=== PATIENT | female | born 1950 | race Caucasian/White ===

== ENCOUNTER 2017-05-08 14:51 | Inpatient (IN) | payer MEDICARE, BC ==
[2017-05-08] MEDS ORDERED: Ondansetron 4 MG/2 ML SDV IV PRN (16:25)
[2017-05-08] MEDS ORDERED: Sodium Chloride 0.9% 10 ML Syringe FLUSH PRN (16:25)
[2017-05-08] MEDS ORDERED: cefTRIAXone 1 GM Vial ONE (16:59)
[2017-05-08] MEDS: cefTRIAXone 1 GM in Sodium Chloride 0.9% 50 ML IV SCH (17:00)
--- NOTE | 2017-05-08 17:04 | PCM.HP ---
H&P History of Present Illness - General Date of Service: 05/08/17 Admit Problem/Dx: Admission Diagnosis/Problem Admission Diagnosis/Problem Pneumonia Source of Information: Patient History Limitations: Reports: No Limitations - History of Present Illness Initial Comments - Free Text/Narative: This is a 66yo F here for concerns of dizziness and chills. Patient states she was sick last week with diarrhea, vomiting and fever and felt improved the past few days and then her symptoms of chills returned with dizziness and loss of appetite. Her was sick last week as well but is well today. She states she just doesn't feel good. She has had a productive cough for the last couple days and chills. Onset of Symptoms: Reports: Sudden Duration of Symptoms: Reports: Day(s):, Getting Worse Location: Reports: Chest Severity: Moderate Improves with: Reports: None Worsens with: Reports: None Associated Symptoms: Reports: Cough, Fever/Chills, Loss of Appetite, Nausea/ Vomiting - Related Data Allergies/Adverse Reactions: Allergies Allergy/AdvReac Type Severity Reaction Status Date / Time sertraline HCl [From Zoloft] Allergy Diarrhea Verified 07/23/15 06:01 Home Medications: Home Meds FLUoxetine [PROzac] 40 mg PO DAILY 07/23/15 [History] Flecainide Acetate 50 mg PO BID 07/23/15 [History] Metoprolol Succinate [Toprol XL] 75 g PO DAILY 07/23/15 [History] Warfarin [Coumadin] 5 mg PO DAILY 07/23/15 [History] H&P Review of Systems - Review of Systems: Review Of Systems: ROS reveals no pertinent complaints other than HPI. Exam - Exam Exam: See Below - Vital Signs Vital Signs: Last Vital Signs Temp 36.1 C 05/08/17 16:57 Pulse 125 H 05/08/17 16:57 Resp 20 05/08/17 16:57 BP 112/81 05/08/17 16:57 Pulse Ox 97 05/08/17 16:57 - Exam General: Alert, Oriented, Cooperative HEENT: PERRLA, Conjunctiva Clear, EACs Clear, EOMI Neck: Supple, Trachea Midline Lungs: Normal Respiratory Effort, Rhonchi Cardiovascular: Irregular Rhythm, Tachycardia GI/Abdominal Exam: Abnormal Bowel Sounds (decreased bowel sounds) Back Exam: Normal Inspection Extremities: Normal Inspection Peripheral Pulses: 2+: Dorsalis Pedis (L), Dorsalis Pedis (R) Skin: Warm, Dry, Intact Neurological: Cranial Nerves Intact, Reflexes Equal Bilateral Neuro Extensive - Mental Status: Alert, Oriented x3, Normal Mood/Affect, Normal Cognition, Memory Intact Psychiatric: Alert, Normal Affect, Normal Mood - Patient Data Lab Results Last 24 hrs: Laboratory Results - last 24 hr 05/08/17 05/08/17 05/08/17 Range/Units 15:06 15:06 15:31 WBC 23.6 H* D (4.0-11.0) K/uL RBC 4.76 (3.80-5.80) M/uL Hgb 15.1 (11.5-16.5) g/dL Hct 44.4 (37.0-47.0) % MCV 93 (76-96) fL MCH 31.7 (27.0-32.0) pg MCHC 34.0 (31.0-35.0) g/dL RDW 12.1 (11.0-16.0) % Plt Count 274 (150-500) K/uL MPV 10.6 H (6.0-10.0) fL Neut % (Auto) 84.5 H (45.0-70.0) % Lymph % (Auto) 8.3 L (20.0-40.0) % [place] % (Auto) 7.1 (3.0-10.0) % Eos % (Auto) 0.0 L (1.0-5.0) % Baso % (Auto) 0.1 (0.0-0.5) % Neut # (Auto) 19.94 H (2.00-7.50) K/uL Lymph # (Auto) 1.96 (1.50-4.00) K/uL [place] # (Auto) 1.68 H (0.20-0.80) K/uL Eos # (Auto) 0.01 L (0.04-0.40) K/uL Baso # (Auto) 0.02 (0.02-0.10) K/uL PT 30.3 H D (9.0-11.5) sec INR 3.2 D (1.0-3.5) Sodium 138 (136-145) mmol/L Potassium 4.1 (3.5-5.1) mmol/L Chloride 103 (98-107) mmol/L Carbon Dioxide 23.3 (21.0-32.0) mmol/L Anion Gap 15.8 H (5.0-15.0) mmol/L BUN 15 D (8-26) mg/dL Creatinine 0.96 (0.55-1.02) mg/dL Est Cr Clr Drug Dosing TNP Estimated GFR (MDRD) 58 L (>60) MLS/MIN BUN/Creatinine Ratio 15.6 (6-25) Glucose 129 H (74-100) mg/dL Calcium 8.9 (8.5-10.1) mg/dL Total Bilirubin 0.9 D (0.0-1.0) mg/dL AST 26 (15-37) U/L ALT 39 (12-78) U/L Alkaline Phosphatase 89 (46-116) U/L Troponin I < 0.017 (0.000-0.060) ng/mL Total Protein 7.7 (6.4-8.2) g/dL Albumin 3.4 (3.4-5.0) g/dL Globulin 4.3 H (2.2-4.2) g/dL Albumin/Globulin Ratio 0.8 (0.8-2.0) TSH, Ultra Sensitive 2.376 (0.358-3.740) uIU/mL Result Diagrams: 05/08/17 15:06 05/08/17 15:06 Farhad Results Last 24 hrs: Microbiology 05/08/17 15:06 Influenza Type A Antigen Screen - Final Nasal, Unspecified NEGATIVE INFLUENZA A VIRUS AG Influenza Type B Antigen Screen - Final NEGATIVE INFLUENZA B VIRUS AG EKG INTERPRETATION EKG Date: 05/08/17 Rhythm: A-Flutter Rate (Beats/Min): 119 Comparison: NA - No Prior EKG *Q Meaningful Use (ADM) - VTE *Q VTE Criteria *Q: - Stroke *Q Stroke Criteria *Q: - AMI *Q AMI Criteria *Q: - Problem List (1) Pneumonia SNOMED Code(s): 458905259 ICD Code: J18.9 - PNEUMONIA, UNSPECIFIED ORGANISM Status: Acute Priority : High Current Visit: Yes Qualifiers: Pneumonia type: due to unspecified organism Laterality: left Lung location: lower lobe of lung Qualified Code(s): J18.1 - Lobar pneumonia, unspecified organism (2) Atrial flutter with rapid ventricular response SNOMED Code(s): 8092345 ICD Code: I48.92 - UNSPECIFIED ATRIAL FLUTTER Status: Acute Priority: High Current Visit: Yes (3) Supratherapeutic INR SNOMED Code(s): 809314659 ICD Code: R79.1 - ABNORMAL COAGULATION PROFILE Status: Acute Priority: Medium Current Visit: Yes (4) Depression SNOMED Code(s): 28043109 ICD Code: F32.9 - MAJOR DEPRESSIVE DISORDER, SINGLE EPISODE, UNSPECIFIED Status: Acute Priority: Medium Current Visit: Yes Qualifiers: Depression Type: major depressive disorder Major depression recurrence: recurrent Active/Remission status: in remission of unspecified degree Qualified Code(s): F33.40 - Major depressive disorder, recurrent, in remission, unspecified (5) Chills (without fever) SNOMED Code(s): 63785761 ICD Code: R68.83 - CHILLS (WITHOUT FEVER) Status: Acute Priority: High Current Visit: Yes (6) Dizziness SNOMED Code(s): 276255987 ICD Code: R42 - DIZZINESS AND GIDDINESS Status: Acute Priority: High Current Visit: Yes (7) COPD (chronic obstructive pulmonary disease) SNOMED Code(s): 09537195 ICD Code: J44.9 - CHRONIC OBSTRUCTIVE PULMONARY DISEASE, UNSPECIFIED Status : Acute Current Visit: Yes Problem List Initiated/Reviewed/Updated: Yes Orders Last 24hrs: Active Orders 24 hr Category Date Time Status Patient Status [ADT] Routine ADT 05/08/17 16:25 Active Cardiac Monitoring [RC] CONTINUOUS Care 05/08/17 16:26 Active Oxygen Therapy [RC] PRN Care 05/08/17 16:25 Active VTE/DVT Education [RC] Per Unit Routine Care 05/08/17 16:25 Active Vital Signs [RC] Q4H Care 05/08/17 16:25 Active Regular Diet [DIET] Diet 05/08/17 Dinner Ordered Chest 2V [CR] Routine Exams 05/08/17 Taken CBC WITH AUTO DIFF [HEME] AM Lab 05/11/17 05:11 Ordered CBC WITH AUTO DIFF [HEME] AM Lab 05/09/17 05:11 Ordered CBC WITH AUTO DIFF [HEME] AM Lab 05/10/17 05:11 Ordered COMPREHENSIVE METABOLIC PN,CMP [CHEM] AM Lab 05/11/17 05:11 Ordered COMPREHENSIVE METABOLIC PN,CMP [CHEM] AM Lab 05/09/17 05:11 Ordered COMPREHENSIVE METABOLIC PN,CMP [CHEM] AM Lab 05/10/17 05:11 Ordered CULTURE BLOOD [BC] Stat Lab 05/08/17 16:47 Received CULTURE SPUTUM + SMEAR [RM] Stat Lab 05/08/17 16:25 Uncollected Doxycycline [Vibramycin] 100 mg Med 05/08/17 20:00 Ordered Sodium Chloride 0.9% [Normal Saline] 100 ml IV Q12HR FLUoxetine [PROzac] Med 05/09/17 08:00 Ordered 40 mg PO DAILY Flecainide [Tambocor] Med 05/08/17 20:00 Ordered 50 mg PO BID Meclizine [Antivert] Med 05/08/17 16:53 Ordered 25 mg PO Q6H PRN Metoprolol Succinate [Toprol XL] Med 05/09/17 08:00 Ordered 100 mg PO DAILY Sodium Chloride 0.9% [Saline Flush] Med 05/08/17 16:25 Active 10 ml FLUSH ASDIRECTED PRN cefTRIAXone [Rocephin] 1 gm Med 05/08/17 17:00 Ordered Sodium Chloride 0.9% [Normal Saline] 50 ml IV Q24H Peripheral IV Insertion Adult [OM.PC] Routine Oth 05/08/17 16:25 Ordered Resuscitation Status Routine Resus Stat 05/08/17 16:25 Ordered Medication Orders Flecainide Acetate (Tambocor) 50 mg PO BID [facility] Fluoxetine HCl (Prozac) 40 mg PO DAILY [facility] Ceftriaxone Sodium 1 gm/ (Sodium Chloride) 50 mls @ 200 mls/hr IV Q24H [facility] Doxycycline Hyclate 100 mg/ (Sodium Chloride) 100 mls @ 100 mls/hr IV Q12HR [facility] Meclizine HCl (Antivert) 25 mg PO Q6H PRN PRN Reason: Dizziness Metoprolol Succinate (Toprol Xl) 100 mg PO DAILY [facility] Sodium Chloride (Saline Flush) 10 ml FLUSH ASDIRECTED PRN PRN Reason: Keep Vein Open Assessment/Plan Comment:: Pneumonia - Placed on Ceftriaxone 1G Q24hrs and Doxycycline 100mg BID (No Macrolide due to interaction with metoprolol) Atrial flutter - History of Paroxysmal Atrial fibrillation on Coumadin was previously rate controlled as far as we know. Adjusted metoprolol succinate to 100mg from 75 mg. Telemetry ordered. Further rate control as needed. Continue on flecainide 50mg BID. Supratherapeutic INR - Coumadin 5mg daily held. Recheck INR in AM and as directed. Depression - Continue on duloxetine 30mg two capsules daily COPD - C No BREO on formulary. We will try fluticasone inhaled BID. Dizziness - We will manage symptoms prn with Meclizine. AM labs ordered. Signed out to Dr. Raphael for the weekend.
[2017-05-08] MEDS ORDERED: Doxycycline 100 MG Vial ONE (17:15)
[2017-05-08] MEDS: Doxycycline 100 MG in Sodium Chloride 0.9% 100 ML IV SCH ×2 (17:55→19:22)
[2017-05-08] MEDS ORDERED: Fluticasone Propionate 110 MCG/Puff 12 GM Inhaler INH SCH (20:00)
[2017-05-08] MEDS: DULoxetine 30 MG Cap PO SCH (20:17)
[2017-05-08] MEDS: FLECAINIDE 50 MG PO SCH (22:22)
[2017-05-09] MEDS ORDERED: Sodium Chloride 0.9% 1,000 ML IV SCH (06:45)
[2017-05-09] MEDS: Metoprolol Succinate 100 MG Tab.ER PO SCH (07:42)
[2017-05-09] MEDS: FLECAINIDE 50 MG PO SCH ×2 (07:43→19:50)
[2017-05-09] MEDS: DULoxetine 30 MG Cap PO SCH ×2 (07:43→19:49)
[2017-05-09] MEDS: Doxycycline 100 MG in Sodium Chloride 0.9% 100 ML IV SCH ×2 (07:54→19:50)
[2017-05-09] MEDS ORDERED: Metoprolol Succinate 25 MG Tab.ER PO SCH (08:00)
[2017-05-09] MEDS ORDERED: FLUoxetine 20 MG Cap PO SCH (08:00)
--- NOTE | 2017-05-09 12:53 | PCM.PN ---
- General Info Date of Service: 05/09/17 Functional Status: Reports: Pain Controlled - Review of Systems General: Reports: No Symptoms HEENT: Reports: No Symptoms Pulmonary: Reports: Cough (Improving) Cardiovascular: Reports: No Symptoms Gastrointestinal: Reports: No Symptoms Genitourinary: Reports: No Symptoms Musculoskeletal: Reports: No Symptoms Skin: Reports: No Symptoms Neurological: Reports: No Symptoms Psychiatric: Reports: No Symptoms - Patient Data Vitals - Most Recent: Last Vital Signs Temp 35.8 C 05/09/17 07:29 Pulse 92 05/09/17 07:42 Resp 19 05/09/17 07:29 BP 119/75 05/09/17 07:42 Pulse Ox 97 05/09/17 07:29 Weight - Most Recent: 117.934 kg I&O - Last 24 Hours: Intake & Output 05/08/17 05/09/17 05/09/17 22:59 06:59 14:59 Intake Total 90 1282 Output Total 1100 Balance 90 182 Lab Results Last 24 Hours: Laboratory Results - last 24 hr 05/08/17 05/08/17 05/08/17 Range/Units 15:06 15:06 15:31 WBC 23.6 H* D (4.0-11.0) K/uL RBC 4.76 (3.80-5.80) M/uL Hgb 15.1 (11.5-16.5) g/dL Hct 44.4 (37.0-47.0) % MCV 93 (76-96) fL MCH 31.7 (27.0-32.0) pg MCHC 34.0 (31.0-35.0) g/dL RDW 12.1 (11.0-16.0) % Plt Count 274 (150-500) K/uL MPV 10.6 H (6.0-10.0) fL Neut % (Auto) 84.5 H (45.0-70.0) % Lymph % (Auto) 8.3 L (20.0-40.0) % [place] % (Auto) 7.1 (3.0-10.0) % Eos % (Auto) 0.0 L (1.0-5.0) % Baso % (Auto) 0.1 (0.0-0.5) % Neut # (Auto) 19.94 H (2.00-7.50) K/uL Lymph # (Auto) 1.96 (1.50-4.00) K/uL [place] # (Auto) 1.68 H (0.20-0.80) K/uL Eos # (Auto) 0.01 L (0.04-0.40) K/uL Baso # (Auto) 0.02 (0.02-0.10) K/uL PT 30.3 H D (9.0-11.5) sec INR 3.2 D (1.0-3.5) Sodium 138 (136-145) mmol/L Potassium 4.1 (3.5-5.1) mmol/L Chloride 103 (98-107) mmol/L Carbon Dioxide 23.3 (21.0-32.0) mmol/L Anion Gap 15.8 H (5.0-15.0) mmol/L BUN 15 D (8-26) mg/dL Creatinine 0.96 (0.55-1.02) mg/dL Est Cr Clr Drug Dosing TNP Estimated GFR (MDRD) 58 L (>60) MLS/MIN BUN/Creatinine Ratio 15.6 (6-25) Glucose 129 H (74-100) mg/dL Calcium 8.9 (8.5-10.1) mg/dL Total Bilirubin 0.9 D (0.0-1.0) mg/dL AST 26 (15-37) U/L ALT 39 (12-78) U/L Alkaline Phosphatase 89 (46-116) U/L Troponin I < 0.017 (0.000-0.060) ng/mL Total Protein 7.7 (6.4-8.2) g/dL Albumin 3.4 (3.4-5.0) g/dL Globulin 4.3 H (2.2-4.2) g/dL Albumin/Globulin Ratio 0.8 (0.8-2.0) TSH, Ultra Sensitive 2.376 (0.358-3.740) uIU/mL 05/09/17 05/09/17 05/09/17 Range/Units 08:25 08:25 08:25 WBC 11.6 H D (4.0-11.0) K/uL RBC 4.67 (3.80-5.80) M/uL Hgb 14.6 (11.5-16.5) g/dL Hct 44.5 (37.0-47.0) % MCV 95 (76-96) fL MCH 31.3 (27.0-32.0) pg MCHC 32.8 (31.0-35.0) g/dL RDW 12.3 (11.0-16.0) % Plt Count 246 (150-500) K/uL MPV 10.2 H (6.0-10.0) fL Neut % (Auto) 74.1 H (45.0-70.0) % Lymph % (Auto) 16.1 L (20.0-40.0) % [place] % (Auto) 8.9 (3.0-10.0) % Eos % (Auto) 0.7 L (1.0-5.0) % Baso % (Auto) 0.2 (0.0-0.5) % Neut # (Auto) 8.61 H (2.00-7.50) K/uL Lymph # (Auto) 1.87 (1.50-4.00) K/uL [place] # (Auto) 1.03 H (0.20-0.80) K/uL Eos # (Auto) 0.08 (0.04-0.40) K/uL Baso # (Auto) 0.02 (0.02-0.10) K/uL PT 23.7 H D (9.0-11.5) sec INR 2.5 D (1.0-3.5) Sodium 141 (136-145) mmol/L Potassium 3.7 (3.5-5.1) mmol/L Chloride 106 (98-107) mmol/L Carbon Dioxide 25.1 (21.0-32.0) mmol/L Anion Gap 13.6 (5.0-15.0) mmol/L BUN 12 (8-26) mg/dL Creatinine 0.93 (0.55-1.02) mg/dL Est Cr Clr Drug Dosing 52.10 Estimated GFR (MDRD) 60 (>60) MLS/MIN BUN/Creatinine Ratio 12.9 (6-25) Glucose 158 H (74-100) mg/dL Calcium 8.3 L (8.5-10.1) mg/dL Total Bilirubin 0.7 (0.0-1.0) mg/dL AST 17 (15-37) U/L ALT 31 (12-78) U/L Alkaline Phosphatase 77 (46-116) U/L Troponin I (0.000-0.060) ng/mL Total Protein 7.1 (6.4-8.2) g/dL Albumin 3.0 L (3.4-5.0) g/dL Globulin 4.1 (2.2-4.2) g/dL Albumin/Globulin Ratio 0.7 L (0.8-2.0) TSH, Ultra Sensitive (0.358-3.740) uIU/mL Farhad Results Last 24 Hours: Microbiology 05/08/17 15:06 Influenza Type A Antigen Screen - Final Nasal, Unspecified NEGATIVE INFLUENZA A VIRUS AG Influenza Type B Antigen Screen - Final NEGATIVE INFLUENZA B VIRUS AG Med Orders - Current: Current Medications Duloxetine HCl (Cymbalta) 30 mg PO BID [facility] Last Admin: 05/09/17 07:43 Dose: 30 mg Flecainide Acetate (Tambocor) 50 mg PO BID [facility] Last Admin: 05/09/17 07:43 Dose: 50 mg Ceftriaxone Sodium 1 gm/ (Sodium Chloride) 50 mls @ 200 mls/hr IV Q24H [facility] Last Admin: 05/08/17 17:00 Dose: 200 mls/hr Doxycycline Hyclate 100 mg/ (Sodium Chloride) 100 mls @ 100 mls/hr IV Q12HR [facility] Last Admin: 05/09/17 07:54 Dose: 100 mls/hr Sodium Chloride (Normal Saline) 1,000 mls @ 125 mls/hr IV ASDIRECTED [facility] Meclizine HCl (Antivert) 25 mg PO Q6H PRN PRN Reason: Dizziness Metoprolol Succinate (Toprol Xl) 100 mg PO DAILY [facility] Last Admin: 05/09/17 07:42 Dose: 100 mg Sodium Chloride (Saline Flush) 10 ml FLUSH ASDIRECTED PRN PRN Reason: Keep Vein Open Discontinued Medications Ceftriaxone Sodium (Rocephin) Confirm Administered Dose 1 gm .ROUTE .STK-MED ONE Stop: 05/08/17 17:00 Last Admin: 05/08/17 17:13 Dose: Not Given Doxycycline Hyclate (Vibramycin) Confirm Administered Dose 100 mg .ROUTE .STK- MED ONE Stop: 05/08/17 17:16 Last Admin: 05/08/17 17:56 Dose: Not Given Fluoxetine HCl (Prozac) 40 mg PO DAILY [facility] Fluticasone Propionate (Flovent Hfa 110 Mcg) 0 gm INH BID [facility] Last Admin: 05/09/17 01:53 Dose: Not Given Metoprolol Succinate (Toprol Xl) 75,000 mg PO DAILY [facility] Ondansetron HCl (Zofran) 4 mg IV Q4H PRN PRN Reason: Nausea/Vomiting - Exam General: Alert, Oriented HEENT: Pupils Equal, Pupils Reactive, EOMI, Mucous Membr. Moist/[place] Neck: Supple Lungs: Clear to Auscultation Cardiovascular: Regular Rate, Regular Rhythm GI/Abdominal Exam: Normal Bowel Sounds, Soft, Non-Tender, No Organomegaly, No Distention, No Abnormal Bruit, No Mass, Pelvis Stable Extremities: Normal Inspection, Normal Range of Motion, Non-Tender, No Pedal Edema, Normal Capillary Refill Neurological: No New Focal Deficit Psy/Mental Status: Alert, Normal Affect, Normal Mood - Problem List Review Problem List Initiated/Reviewed/Updated: Yes - Plan Plan:: Pneumonia - Placed on Ceftriaxone 1G Q24hrs and Doxycycline 100mg BID (No Macrolide due to interaction with metoprolol) Atrial flutter - History of Paroxysmal Atrial fibrillation on Coumadin was previously rate controlled as far as we know. Adjusted metoprolol succinate to 100mg from 75 mg. Telemetry ordered. Further rate control as needed. Continue on flecainide 50mg BID. Supratherapeutic INR - Coumadin 5mg daily held. Recheck INR in AM and as directed. Depression - Continue on duloxetine 30mg two capsules daily COPD - C No BREO on formulary. We will try fluticasone inhaled BID. Dizziness - We will manage symptoms prn with Meclizine. AM labs ordered. Signed out to Dr. Raphael for the weekend.
[2017-05-09] MEDS: cefTRIAXone 1 GM in Sodium Chloride 0.9% 50 ML IV SCH (18:33)
[2017-05-10] MEDS: Metoprolol Succinate 100 MG Tab.ER PO SCH (07:54)
[2017-05-10] MEDS: DULoxetine 30 MG Cap PO SCH ×2 (07:55→19:53)
[2017-05-10] MEDS: FLECAINIDE 50 MG PO SCH ×2 (07:55→19:53)
[2017-05-10] MEDS ORDERED: BREO ELLIPTA INH SCH (08:00)
[2017-05-10] MEDS: Doxycycline 100 MG in Sodium Chloride 0.9% 100 ML IV SCH (08:03)
[2017-05-10] MEDS: cefTRIAXone 1 GM in Sodium Chloride 0.9% 50 ML IV SCH (16:16)
--- NOTE | 2017-05-10 19:05 | PCM.DCSUM1 ---
Discharge Summary - Hospital Course Free Text/Narrative:: Patient was admitted 2 days ago with Pneumonia. She has responded very well to IV fluids and IV Rocephin and Doxycycline. Her WBC was normal today and she feels excellent and she would like to go home on Levaquin 500 mg po daily for 10 more days. She will follow up with Dr. Aparicio in 2 days to make sure she is doing well. HPI Initial Comments: See Dr. Aparicio's H and P. Brief History: Patient was hospitalized for pneumonia. - Discharge Data Discharge Date: 05/10/17 Discharge Disposition: Home, Self-Care 01 Condition: Good - Discharge Plan Home Medications: Home Meds Flecainide Acetate 50 mg PO BID 07/23/15 [History] Metoprolol Succinate [Toprol XL] 75 mg PO DAILY 07/23/15 [History] Warfarin [Coumadin] 5 mg PO DAILY 07/23/15 [History] DULoxetine HCl [Duloxetine HCl] 30 mg PO BID 05/08/17 [History] Patient Handouts: Levofloxacin tablets, Community-Acquired Pneumonia, Adult - General Info Date of Service: 05/10/17 Admission Dx/Problem (Free Text: Admission Diagnosis/Problem Admission Diagnosis/Problem Pneumonia Functional Status: Reports: Pain Controlled - Review of Systems General: Reports: No Symptoms HEENT: Reports: No Symptoms Pulmonary: Reports: No Symptoms Cardiovascular: Reports: No Symptoms Gastrointestinal: Reports: No Symptoms Genitourinary: Reports: No Symptoms Musculoskeletal: Reports: No Symptoms Skin: Reports: No Symptoms Neurological: Reports: No Symptoms Psychiatric: Reports: No Symptoms - Patient Data Vitals - Most Recent: Last Vital Signs Temp 35.7 C 05/10/17 08:00 Pulse 62 05/10/17 12:00 Resp 16 05/09/17 20:00 BP 117/65 05/10/17 12:00 Pulse Ox 93 L 05/10/17 12:00 Weight - Most Recent: 117.934 kg I&O - Last 24 hours: Intake & Output 05/10/17 05/10/17 05/10/17 06:59 14:59 22:59 Intake Total 590 Output Total 400 Balance 190 Lab Results - Last 24 hrs: Laboratory Results - last 24 hr 05/10/17 05/10/17 05/10/17 Range/Units 09:10 09:10 09:10 WBC 8.1 D (4.0-11.0) K/uL RBC 4.04 (3.80-5.80) M/uL Hgb 12.9 (11.5-16.5) g/dL Hct 39.1 (37.0-47.0) % MCV 97 H (76-96) fL MCH 31.9 (27.0-32.0) pg MCHC 33.0 (31.0-35.0) g/dL RDW 12.2 (11.0-16.0) % Plt Count 224 (150-500) K/uL MPV 10.3 H (6.0-10.0) fL Neut % (Auto) 67.8 (45.0-70.0) % Lymph % (Auto) 19.9 L (20.0-40.0) % [place] % (Auto) 9.4 (3.0-10.0) % Eos % (Auto) 2.5 (1.0-5.0) % Baso % (Auto) 0.4 (0.0-0.5) % Neut # (Auto) 5.47 (2.00-7.50) K/uL Lymph # (Auto) 1.60 (1.50-4.00) K/uL [place] # (Auto) 0.76 (0.20-0.80) K/uL Eos # (Auto) 0.20 (0.04-0.40) K/uL Baso # (Auto) 0.03 (0.02-0.10) K/uL PT 16.0 H D (9.0-11.5) sec INR 1.7 D (1.0-3.5) Sodium 143 (136-145) mmol/L Potassium 4.6 D (3.5-5.1) mmol/L Chloride 108 H (98-107) mmol/L Carbon Dioxide 28.4 (21.0-32.0) mmol/L Anion Gap 11.2 (5.0-15.0) mmol/L BUN 13 (8-26) mg/dL Creatinine 0.87 (0.55-1.02) mg/dL Est Cr Clr Drug Dosing 55.69 mL/min Estimated GFR (MDRD) > 60 (>60) MLS/MIN BUN/Creatinine Ratio 14.9 (6-25) Glucose 115 H (74-100) mg/dL Calcium 8.7 (8.5-10.1) mg/dL Total Bilirubin 0.4 D (0.0-1.0) mg/dL AST 18 (15-37) U/L ALT 31 (12-78) U/L Alkaline Phosphatase 68 (46-116) U/L Total Protein 6.7 (6.4-8.2) g/dL Albumin 2.8 L (3.4-5.0) g/dL Globulin 3.9 (2.2-4.2) g/dL Albumin/Globulin Ratio 0.7 L (0.8-2.0) RANDY Results - Last 24 hrs: Microbiology 05/08/17 16:47 Aerobic Blood Culture - Preliminary Blood - Arm, Left NO GROWTH AFTER 2 DAYS Anaerobic Blood Culture - Preliminary NO GROWTH AFTER 2 DAYS 05/08/17 Unknown Gram Stain - Final Sputum - Expectorated Sputum Culture - Preliminary Normal [place] 05/08/17 Unknown MRSA Surveillance Culture - Final Nasal, Unspecified NO MRSA ISOLATED Med Orders - Current: Current Medications Duloxetine HCl (Cymbalta) 30 mg PO BID [facility] Last Admin: 05/10/17 07:55 Dose: 30 mg Flecainide Acetate (Tambocor) 50 mg PO BID [facility] Last Admin: 05/10/17 07:55 Dose: 50 mg Ceftriaxone Sodium 1 gm/ (Sodium Chloride) 50 mls @ 200 mls/hr IV Q24H [facility] Last Admin: 05/10/17 16:16 Dose: 200 mls/hr Doxycycline Hyclate 100 mg/ (Sodium Chloride) 100 mls @ 100 mls/hr IV Q12HR [facility] Last Admin: 05/10/17 08:03 Dose: 100 mls/hr Meclizine HCl (Antivert) 25 mg PO Q6H PRN PRN Reason: Dizziness Metoprolol Succinate (Toprol Xl) 100 mg PO DAILY [facility] Last Admin: 05/10/17 07:54 Dose: 100 mg Breo Ellipta 200/ (25mcgOwn Med) 0 each INH DAILY [facility] Last Admin: 05/10/17 08:00 Dose: 1 each Sodium Chloride (Saline Flush) 10 ml FLUSH ASDIRECTED PRN PRN Reason: Keep Vein Open Last Admin: 05/10/17 08:04 Dose: 10 ml Discontinued Medications Ceftriaxone Sodium (Rocephin) Confirm Administered Dose 1 gm .ROUTE .STK-MED ONE Stop: 05/08/17 17:00 Last Admin: 05/08/17 17:13 Dose: Not Given Doxycycline Hyclate (Vibramycin) Confirm Administered Dose 100 mg .ROUTE .STK- MED ONE Stop: 05/08/17 17:16 Last Admin: 05/08/17 17:56 Dose: Not Given Fluoxetine HCl (Prozac) 40 mg PO DAILY [facility] Fluticasone Propionate (Flovent Hfa 110 Mcg) 0 gm INH BID [facility] Last Admin: 05/09/17 01:53 Dose: Not Given Sodium Chloride (Normal Saline) 1,000 mls @ 125 mls/hr IV ASDIRECTED [facility] Stop: 05/09/17 19:45 Metoprolol Succinate (Toprol Xl) 75,000 mg PO DAILY [facility] Ondansetron HCl (Zofran) 4 mg IV Q4H PRN PRN Reason: Nausea/Vomiting - Exam General: Reports: Alert, Oriented HEENT: Reports: Pupils Equal, Pupils Reactive, EOMI, Mucous Membr. Moist/[place] Neck: Reports: Supple Lungs: Reports: Clear to Auscultation, Normal Respiratory Effort Cardiovascular: Reports: Regular Rate, Regular Rhythm GI/Abdominal Exam: Normal Bowel Sounds, Soft, Non-Tender, No Organomegaly, No Distention, No Abnormal Bruit, No Mass, Pelvis Stable Back Exam: Reports: Normal Inspection, Full Range of Motion Extremities: Normal Inspection, Normal Range of Motion, Non-Tender, No Pedal Edema, Normal Capillary Refill Skin: Reports: Warm, Dry, Intact Neurological: Reports: No New Focal Deficit Psy/Mental Status: Reports: Alert, Normal Affect, Normal Mood *Q Meaningful Use (DIS) - VTE *Q VTE Criteria *Q: - Stroke *Q Stroke Criteria *Q: - AMI *Q AMI Criteria *Q:
[2017-05-10] MEDS ORDERED: Levofloxacin 500 MG Tab ONE (19:30)
--- NOTE | 2017-05-11 20:49 | CR ---
DATE OF SERVICE: 05/08/2017 CLINICAL DATA: Chills (without fever), dizziness and giddiness. PA AND LATERAL CHEST: No priors. The heart size is normal. The lungs are mildly hyperexpanded. There is subtle increased density in the left lower lung on the frontal view that obscures the left heart border consistent with infiltrate or atelectasis involving the lingular segment of the left upper lobe. Pneumonia should be considered. The lungs are otherwise clear. No pneumothorax. No pleural effusions. [id number] [facility]
== END 2017-05-10 19:50 | disposition home or self-care (01) | DRG 194 ==
LOC: LB.CLINIC 14:51 → LB.MS 16:25 → UNDOADMIN 16:31 → LB.MS 16:31
PROVIDERS: ADMIT Family Medicine; ATTEND Family Medicine
DX: J18.1 Lobar pneumonia, unspecified organism (principal); I48.92 Unspecified atrial flutter; F33.40 Major depressive disorder, recurrent, in remission, unspecified; R68.83 Chills (without fever); R42 Dizziness and giddiness; J44.9 Chronic obstructive pulmonary disease, unspecified; R79.1 Abnormal coagulation profile; Z87.898 Personal history of other specified conditions; Z79.01 Long term (current) use of anticoagulants; Z88.8 Allergy status to other drugs, medicaments and biological substances
CPT/HCPCS: 36415; 71020; 80053; 84443; 84484; 85025; 85610; 87040; 87070; 87205; 87804; 93005; A9270-GY; J0696; J7030; J7050

== ENCOUNTER → 2019-04-27 | Outpatient (CLI) | payer MEDICARE | LOC: LB.CLINIC 08:53 | PROVIDERS: ATTEND Nurse Practitioner Family | DX: R30.0 Dysuria (principal) | CPT/HCPCS: 81001 ==